=== PATIENT | male | born 1980 | race African-American/Black ===

== ENCOUNTER 2022-06-09 15:16 | Inpatient (IN) | payer MEDICAID ==
[~2022-06-09] VITALS: Ht 182.9 cm; Wt 120.7 kg
[2022-06-09] MEDS ORDERED: MORPHINE SULFATE 4 MG/ML CPJ (NOT FOR IM USE) IV STA (16:11)
[2022-06-09] MEDS ORDERED: ONDANSETRON HCL 4MG/2ML INJ IV STA (16:11)
[2022-06-09] MEDS ORDERED: SODIUM CHLORIDE 0.9% 1,000 ML IV ONE (16:15)
[2022-06-09 16:25] LABS: BASOPHILS % 0.5 % (0.0-2.0); EOSINOPHILS % 0.5 % (0.0-5.0); HEMATOCRIT. 43.4 % (42.0-52.0); HEMOGLOBIN. 14.8 g/dL (14.0-18.0); LYMPHOCYTES % 12.7 % (20.0-50.0); MEAN CORPUSCULAR HEMOGLOBIN 28.8 pg (28.0-32.0); MEAN CORPUSCULAR VOLUME 84.5 fL (80.0-94.0); MEAN PLATELET VOLUME 8.5 fl (7.4-10.4); MONOCYTES % 5.1 % (2.0-8.0); NEUTROPHILS % 81.2 % (40.0-76.0); PLATELET 212 x1000/uL (130-400); RED BLOOD CELL COUNT 5.14 mill/uL (4.7-6.1); RED CELL DISTRIBUTION WIDTH 13.9 % (11.6-14.6)
[2022-06-09 16:33] LABS: CHLORIDE 104 mEq/L (98-107)
[2022-06-09 18:42] LABS: CLARITY URINE CLEAR (CLEAR); COLOR URINE YELLOW (YELLOW); KETONES URINE NEGATIVE (NEGATIVE); LEUKOCYTE ESTERASE URINE NEGATIVE (NEGATIVE); NITRITE URINE NEGATIVE (NEGATIVE); OCCULT BLOOD URINE NEGATIVE (NEGATIVE); PH URINE 6.5 (4.5-8.0); PROTEIN URINE NEGATIVE (NEGATIVE); SPECIFIC GRAVITY URINE 1.006 (1.005-1.030); UROBILINOGEN URINE 0.2 E.U./dL (0.2-1.0)
[2022-06-09] MEDS ORDERED: PIPERACILLIN/TAZ 3.375G PREMIX 50 ML IV ONE (19:30)
[2022-06-09 19:43] LABS: PARTIAL THROMBOPLASTIN TIME 29.5 sec (23.4-31.0); PROTHROMBIN TIME 10.4 sec (9.6-11.0)
[2022-06-09 20:00] VITALS: BP 142/79
[2022-06-09] MEDS ORDERED: BUPIVACAINE HCL/PF 0.5% (5MG/ML) 30ML ONE (20:59)
[2022-06-09] MEDS ORDERED: SKIN ADHESIVE 0.7 GM EA TOP ONE (20:59)
[2022-06-09] MEDS ORDERED: MORPHINE SULFATE 4 MG/ML CPJ (NOT FOR IM USE) IV PRN (21:00)
[2022-06-09] MEDS ORDERED: ONDANSETRON HCL 4MG/2ML INJ IV PRN ×2 (21:00→21:45)
[2022-06-09] MEDS ORDERED: HYDROCODONE/ACETAMINOPHEN 5/325MG TABLET PO PRN ×2 (21:00)
[2022-06-09] MEDS ORDERED: MORPHINE SULFATE 2 MG/ML CPJ (NOT FOR IM USE) IV PRN (21:00)
[2022-06-09] MEDS ORDERED: DEXAMETHASONE 4MG/ML 1ML VIAL ONE (21:02)
[2022-06-09] MEDS ORDERED: ROCURONIUM BROMIDE 10MG/ML VIAL 5ML IV ONE (21:02)
[2022-06-09] MEDS ORDERED: NEOSTIGMINE METHYLSULFATE 1MG/ML 10 ML VIAL ONE (21:02)
[2022-06-09] MEDS ORDERED: ONDANSETRON HCL 4MG/2ML INJ ONE (21:02)
[2022-06-09] MEDS ORDERED: PROPOFOL 200MG/20ML VIAL IV ONE (21:02)
[2022-06-09] MEDS ORDERED: GLYCOPYRROLATE 0.2 MG/ML 2ML VIAL ONE ×2 (21:03)
[2022-06-09] MEDS ORDERED: FENTANYL CITRATE/PF 50MCG/ML 2ML VIAL ONE (21:03)
[2022-06-09] MEDS ORDERED: MIDAZOLAM HCL 2 MG/2 ML VIAL ONE (21:03)
[2022-06-09] MEDS ORDERED: LIDOCAINE HCL 1% 10 MG/ML 10ML VIAL ONE (21:17)
[2022-06-09] MEDS ORDERED: NALOXONE HCL 0.4MG/ML VIAL IV PRN (21:30)
[2022-06-09] MEDS ORDERED: HYDROMORPHONE HCL/PF 2MG/ML CPJ IV PRN (21:45)
[2022-06-09] MEDS ORDERED: LABETALOL 5MG/ML SYR 20 MG/4 ML SYRINGE IV PRN (21:45)
[2022-06-09] MEDS: MEPERIDINE HCL/PF 25MG/ML CPJ IV PRN ×2 (22:33→22:50)
[2022-06-10 00:30] VITALS: BP 142/79
[2022-06-10] MEDS: DEXT 5%/0.45% NACL KCL 20MEQ/L 1,000 ML IV SCH ×2 (03:26→08:18)
[2022-06-10 04:00] VITALS: BP 153/92
[2022-06-10] MEDS ORDERED: PIPERACILLIN/TAZOBACTAM 3.375 G in DEXTROSE 5% WATER 50 ML IV SCH ×2 (06:00→06:30)
[2022-06-10 07:12] LABS: BASOPHILS % 0.2 % (0.0-2.0); HEMATOCRIT. 41.3 % (42.0-52.0); HEMOGLOBIN. 14.2 g/dL (14.0-18.0); LYMPHOCYTES % 8.6 % (20.0-50.0); MEAN CORPUSCULAR HEMOGLOBIN 28.9 pg (28.0-32.0); MEAN CORPUSCULAR VOLUME 84.2 fL (80.0-94.0); MEAN PLATELET VOLUME 8.6 fl (7.4-10.4); MONOCYTES % 5.7 % (2.0-8.0); NEUTROPHILS % 85.5 % (40.0-76.0); PLATELET 216 x1000/uL (130-400); RED BLOOD CELL COUNT 4.91 mill/uL (4.7-6.1); RED CELL DISTRIBUTION WIDTH 14.1 % (11.6-14.6)
[2022-06-10 07:26] LABS: CHLORIDE 106 mEq/L (98-107)
[2022-06-10 07:41] LABS: T4 FREE 0.99 ng/dL (0.76-1.46)
[2022-06-10 08:00] VITALS: BP 155/100
[2022-06-10] MEDS ORDERED: HYDRALAZINE 20MG/ML VIAL IV PRN (08:00)
[2022-06-10] MEDS ORDERED: PANTOPRAZOLE SODIUM 40 MG/VIAL IV SCH (09:00)
[2022-06-10] MEDS ORDERED: HYDRALAZINE 5 MG in SODIUM CHLORIDE 0.9% 49.75 ML IV PRN (10:15)
[2022-06-10 12:00] VITALS: BP 161/102
[2022-06-10] MEDS ORDERED: CLONIDINE 0.1MG TABLET PO SCH ×2 (12:00→14:00)
[2022-06-10] MEDS ORDERED: HYDRALAZINE HCL 50MG TABLET PO SCH ×2 (12:00→14:00)
[2022-06-10 12:20] VITALS: BP 155/95
[2022-06-10] MEDS ORDERED: ACETAMINOPHEN 650MG/20.3ML UDC PO PRN (12:30)
[2022-06-10] MEDS ORDERED: ACET-2708 PO ×3 (12:38→12:53)
[2022-06-10] MEDS ORDERED: HYDR-4135 PO (12:38)
[2022-06-10] MEDS ORDERED: AMLO10TA80 PO (12:38)
[2022-06-10] MEDS ORDERED: LISI40TA13 PO (12:38)
[2022-06-10] MEDS ORDERED: AMOX1TAB15 MT ×3 (12:38→12:53)
[2022-06-10] MEDS ORDERED: METO-385 PO (12:38)
[2022-06-10] MEDS ORDERED: CLON0.1T PO (12:38)
[2022-06-11] MEDS ORDERED: METOPROLOL SUCCINATE 50MG ER TABLET PO SCH (09:00)
[2022-06-11] MEDS ORDERED: AMLODIPINE 10MG TABLET PO SCH (09:00)
[2022-06-11] MEDS ORDERED: LISINOPRIL 40MG TABLET PO SCH (09:00)
== END 2022-06-10 14:55 | disposition home or self-care (01) | DRG 234 ==
LOC: ER 15:16 → EDBEDREQTM 20:15 → EDBEDREQ 20:15 → EDBEDREQSVC 20:15 → 6EST 20:24 → EDBEDREQSVC 20:37 → EDBEDREQTM 20:37 → ENRESERV 21:38
PROVIDERS: ADMIT Internal Medicine; ATTEND Internal Medicine
PROC: 0DTJ4ZZ Resection of Appendix, Percutaneous Endoscopic Approach (ICD-10-PCS; principal; 2022-06-09)
DX: K35.80 Unspecified acute appendicitis (principal); N17.9 Acute kidney failure, unspecified; I10 Essential (primary) hypertension; Z20.822 Contact with and (suspected) exposure to COVID-19; R73.9 Hyperglycemia, unspecified; Z79.899 Other long term (current) drug therapy
CPT/HCPCS: 36415; 71045; 74176; 80053; 81003; 84439; 84443; 84484; 85025; 86850; 86900; 87426; 88304; 93005; 99285; C9113; C9803; J1100; J2175; J2250; J2270; J2405; J2543; J2704; J2710; J3010; J3490; J7030; J7060